=== PATIENT | female | born 1980 | race Caucasian/White ===

== ENCOUNTER 2024-05-07 13:57 | Outpatient (AMB) | payer OTHER, SELFPAY ==
--- NOTE | 2024-05-07 14:06 | MHC.PC.OV ---
Vital Signs 05/07/24 14:16 Height 5 ft 4.76 in Weight 155 lb 8 oz BMI 26.1 BP 108/80 Blood Pressure Location Rt brachial Position Sitting Respiration 12 Pulse 70 Pulse Source Pulse Oximeter Temp 98.7 F Temp Source Oral Pulse Oximetry (%) 99 Oxygen Delivery Method Room Air Intake Visit Reasons: Est CARE Allergies azithromycin Allergy (Unknown, Verified 05/07/24 14:07) Unknown clindamycin Allergy (Unknown, Verified 05/07/24 14:07) Unknown Medication List - Last Reconciled 05/07/24 by Nano Peters PA-C amlodipine 10 mg PO DAILY cetirizine (Zyrtec) 10 mg PO DAILY PRN estradiol 1 patch transdermal 2XW hydrochlorothiazide 25 mg PO DAILY lorazepam 0.5 mg PO BID PRN propranolol 10 mg PO BID rizatriptan take 1 tab at onset of headache; if no relief may repeat 1 tab after at least 2 hrs; max = 3 tabs/24 hr PO Tobacco use date assessed: 05/07/24 Dental Screening Dental Screen Date: 05/07/24 Did you have a dental visit in the last 12 months?: Yes Did you have a dental problem in the last 6 months where you did not have access to dental care?: No Was dental information given to patient?: Patient has dentist HPI Est CARE HPI Details Patient is a 44-year-old female who presents today for a follow up. She has a history of anxiety, depression, hypertension, insomnia and migraines. CV: Blood pressure today in the office is 108/80. She has had a Holter, stress test and echo which were WNL. She is currently on propranolol 10 mg twice a day, hydrochlorothiazide 25 mg and amlodipine 10 mg. She did have a renal artery u/s that was wnl. Psych: Currently on Celexa 40 mg, hydroxyzine as needed amitriptyline 10 mg at bedtime. The amitriptyline also helps her with her headaches. The propranolol treats her anxiety as well. She states that every few months she will experience insomnia that will last almost a week. She states that it will start off gradual were she will have a hard time falling asleep for the 1st few hours and then eventually by the middle of the week she will not be able to sleep until 06:00 and then she will fall asleep for a few hours in the morning. She states that then it will gradually improve back to her baseline. She has spoken with a psychiatrist about this in the past. She does not know if she has any issues with her oxygenation at night. She states that her whole family has sleep apnea. She feels exhausted all day long. Mammogram- UTD fall 2022 [facility] Medical History (Updated 05/07/24 @ 14:56 by Nano Peters PA-C) Herpes zoster Depressive disorder Fibromyalgia Migraine Insomnia Hypercholesteremia Hypertension GERD (gastroesophageal reflux disease) Gall stones Anxiety and depression Surgical History (Updated 12/27/22 @ 09:23 by Ruy Walker LPN) Hx of knee surgery Family History (Updated 12/27/22 @ 09:27 by Ruy Walker LPN) Mother Cardiac arrest Hypercholesteremia Brother Hypertension Sister Diabetes Social History Housing: House Patient Tobacco Use Status: Never used Tobacco e-Cigarette/Vaping Use: Never Used Second Hand Smoke Exposure: No service: No Current occupational status: employed and unemployed 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 1. Little interest or pleasure in doing things: several days 2. Feeling down, depressed, or hopeless: not at all 3. Trouble falling or staying asleep, or sleeping too much: nearly every day 4. Feeling tired or having little energy: several days 5. Poor appetite or overeating: not at all 6. Feeling bad about yourself - or that you are a failure or have let yourself or your family down: not at all 7. Trouble concentrating on things, such as reading the newspaper or watching television: several days 8. Moving or speaking so slowly that other people could have noticed. Or the opposite - being so fidgety or restless that you have been moving around a lot more than usual: not at all 9. Thoughts that you would be better off or of hurting yourself in some way: not at all Total score: 6 Depression Screening Interpretation: Positive Depression Screening Follow-up: Existing condition, In treatment and Change in Medication Depression Screening Done: Yes 00801 - PHQ-9 Billing: Yes Source: Developed by Drs. Wesley Lee, Fanny Roy, Sukhjinder Delarosa and colleagues, with an educational casey from [employer]. Thrive Questionnaire I am a: Patient What is your living situation today?: I have a steady place to live Within the past 12 months, did the food you bought not last and you didn't have the money to get more?: Never true Within the past 12 months, did you worry whether your food would run out before you got money to buy more?: Never true Do you have trouble paying for medicines?: No Do you have trouble getting transportation to medical appointments?: No Do you have trouble paying your heating and electricity bill?: No Do you have trouble taking care of your child, family member or friend?: No Do you have trouble with day-to-day activities such as bathing, preparing meals, shopping, managing finances, etc.?: No Are you currently unemployed and looking for a job?: No Are you interested in more education?: No Please select the resources that you would like help with: None Currently or been in a relationship where the following occur: no concerns reported THRIVE Score: 0 AUDIT C Alcohol Use Questionnaire (AUDIT-C) 1. How often do you have a drink containing alcohol?: 2-3 times a week 2. How many drinks containing alcohol do you have on a typical day when you are drinking?: 1 or 2 3. How often do you have six or more drinks on one occasion?: Never Total Score: 3 BENNY-7 AMB Questionnaire BENNY-7 Feeling nervous, anxious, or on edge: 1 = Several days Not being able to stop or control worryin = Not at all Worrying too much about different things: 1 = Several days Trouble relaxin = Not at all Being so restless that it is hard to sit still: 0 = Not at all Becoming easily annoyed or irritable: 0 = Not at all Feeling afraid as if something awful might happen: 0 = Not at all Total BENNY-7 score (0-4 normal; 5-9 mild; 10-14 moderate; 15-21 severe): 2 Source: Developed by Drs. Wesley Lee, Fanny Roy, Sukhjinder Delarosa and colleagues, with an educational casey from [employer]. BENNY-7 Assessment Billing BENNY-7 Assessment Tool: BENNY-7 Assessment 56418 Physical exam (Primary Care) Vital Signs: Last Vital Signs Temp 98.7 F 05/07/24 14:16 Pulse 70 05/07/24 14:16 Resp 12 05/07/24 14:16 BP 108/80 05/07/24 14:16 Pulse Ox 99 05/07/24 14:16 Oxygen Delivery Method Room Air 05/07/24 14:16 BMI result Body Mass Index 26.1 Tobacco/Smoking Status: Tobacco use Status Tobacco use date assessed 05/07/24 05/07/24 14:18 Patient Tobacco Use Status Never used Tobacco 05/07/24 14:18 e-Cigarette/Vaping Use Never Used 05/07/24 14:18 Depression Screening Interpretation: Positive Depression Screening Follow-up: Existing condition, In treatment and Change in Medication Currently or been in a relationship where the following occur: no concerns reported Const Orientation/consciousness: patient oriented x3 HENMT Ears: hearing grossly normal bilaterally Neck Thyroid: Thyroid normal Lymphatic: no lymphadenopathy noted Resp Auscultation: clear to auscultation bilaterally Cardio Rate: regular rate Rhythm: regular rhythm Heart sounds: S1 normal heart sound present and S2 normal heart sound present GI Inspection: Yes normal to inspection Palpation (GI): Soft to palpation and Other GI palpation findings present (nontender, no cva tenderness) Auscultation: normoactive bowel sounds Rectal Exam - Female: deferred Skin General skin exam: no rashes or lesions noted Neuro General: patient oriented x3, gait normal and no focal motor deficits Assessment and Plan Assessment & Plan (1) Hypertension: Code(s): I10 - Essential (primary) hypertension Qualifiers: Hypertension type: primary hypertension Qualified Code(s): I10 - Essential (primary) hypertension Plan: Continue current regimen (2) Hypercholesteremia: Code(s): E78.00 - Pure hypercholesterolemia, unspecified Plan: Lipids ordered (3) Insomnia: Code(s): G47.00 - Insomnia, unspecified Qualifiers: Insomnia type: unspecified Qualified Code(s): G47.00 - Insomnia, unspecified Plan: Increase amitriptyline. Sleep study ordered. Has a longstanding history of this. (4) Migraine: Code(s): G43.909 - Migraine, unspecified, not intractable, without status migrainosus Qualifiers: Migraine type: unspecified Status migrainosus presence: without status migrainosus Intractability: not intractable Qualified Code(s): G43.909 - Migraine, unspecified, not intractable, without status migrainosus Plan: Overall well-controlled (5) Fatigue: Code(s): R53.83 - Other fatigue Plan: Labs and sleep study ordered. Orders: Orders Lipid Panel Today E78.00 - Pure hypercholesterolemia, unspecified, G43.909 - Migraine, unspecified, not intractable, without status migrainosus, G47.00 - Insomnia, unspecified, I10 - Essential (primary) hypertension TSH reflex Free T4 Today E78.00 - Pure hypercholesterolemia, unspecified, G43.909 - Migraine, unspecified, not intractable, without status migrainosus, G47.00 - Insomnia, unspecified, I10 - Essential (primary) hypertension Ferritin Today E78.00 - Pure hypercholesterolemia, unspecified, G43.909 - Migraine, unspecified, not intractable, without status migrainosus, G47.00 - Insomnia, unspecified, I10 - Essential (primary) hypertension Vitamin B12 and Folate Today E78.00 - Pure hypercholesterolemia, unspecified, G43.909 - Migraine, unspecified, not intractable, without status migrainosus, G47.00 - Insomnia, unspecified, I10 - Essential (primary) hypertension RT home sleep study Today G47.00 - Insomnia, unspecified, I10 - Essential (primary) hypertension, R53.83 - Other fatigue Complete Blood Count Auto Diff Today E78.00 - Pure hypercholesterolemia, unspecified, G43.909 - Migraine, unspecified, not intractable, without status migrainosus, G47.00 - Insomnia, unspecified, I10 - Essential (primary) hypertension Comprehensive [place]. Panel Fast Today E78.00 - Pure hypercholesterolemia, unspecified, G43.909 - Migraine, unspecified, not intractable, without status migrainosus, G47.00 - Insomnia, unspecified, I10 - Essential (primary) hypertension IRON PROFILE Today E78.00 - Pure hypercholesterolemia, unspecified, G43.909 - Migraine, unspecified, not intractable, without status migrainosus, G47.00 - Insomnia, unspecified, I10 - Essential (primary) hypertension Medications: New citalopram 40 mg PO DAILY 90 tabs 3RF rizatriptan take 1 tab at onset of headache; if no relief may repeat 1 tab after at least 2 hrs; max = 3 tabs/24 hr PO 10 tabs 3RF amitriptyline 25 mg PO BEDTIME 90 tabs 3RF Coding Level of Care Code Est Pt Level 4 (71949) Complex EM visit Add On G2211 Diagnoses Primary hypertension I10 Hypertension type: primary hypertension Hypercholesteremia E78.00 Insomnia, unspecified type G47.00 Insomnia type: unspecified Migraine without status migrainosus, not intractable, unspecified migraine type G43.909 Migraine type: unspecified Status migrainosus presence: without status migrainosus Intractability: not intractable Fatigue R53.83 Additional Codes BENNY-7 Assessment Billing - BENNY-7 Assessment Tool: BENNY-7 Assessment 45809 ([id number])
[2024-05-07 14:16] VITALS: BP 108/80; PULSE 70; RESP 12; TEMP 37.1; O2SAT 99; BMI 26.1
== END 2024-05-07 14:54 | disposition home or self-care (01) ==
PROVIDERS: PCP Physician Assistant; Visit Provider Physician Assistant
DX: I10 Essential (primary) hypertension (principal); E78.00 Pure hypercholesterolemia, unspecified; G47.00 Insomnia, unspecified; G43.909 Migraine, unspecified, not intractable, without status migrainosus; R53.83 Other fatigue
CPT/HCPCS: 99214; G2211

== ENCOUNTER 2024-08-13 15:27 | Outpatient (AMB) | payer OTHER, SELFPAY ==
--- NOTE | 2024-08-13 15:36 | A.OFFPC_ITS ---
Vital Signs 08/13/24 15:37 Height 5 ft 4.76 in Weight 150 lb 4 oz BMI 25.2 BP 102/70 Blood Pressure Location Rt brachial Position Sitting Pulse 82 Pulse Source Pulse Oximeter Pulse Oximetry (%) 97 Oxygen Delivery Method Room Air Intake Visit Reasons: Physical Intake Note: Physical. Forgot to get fasting labs done. 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: No Allergies azithromycin Allergy (Unknown, Verified 08/13/24 15:36) Unknown clindamycin Allergy (Unknown, Verified 08/13/24 15:36) Unknown Medication List - Last Reconciled 08/13/24 by Nano Peters PA-C amitriptyline 25 mg PO BEDTIME amlodipine 10 mg PO DAILY cetirizine (Zyrtec) 10 mg PO DAILY PRN citalopram 40 mg PO DAILY estradiol 1 patch transdermal 2XW hydrochlorothiazide 25 mg PO DAILY lorazepam 0.5 mg PO BID PRN propranolol 10 mg PO BID rizatriptan take 1 tab at onset of headache; if no relief may repeat 1 tab after at least 2 hrs; max = 3 tabs/24 hr PO Tobacco use date assessed: 05/07/24 Dental Screening Dental Screen Date: 05/07/24 HPI Physical HPI Details Pt is 44 y/o female who presents today for a cpe. CV: bp today is 102/70. She is on norvasc 10 mg and hctz 25 mg. Neuro: Migraines are improved with amitriptyline. General: still feeling tired and having a hard time falling asleep and staying asleep. She states sometimes she won't fall asleep until the next day. She states it does not matter how much sleep she gets she is tired all of the time. She takes naps daily to function. She does not limit caffeine but does not notice a difference to drinking it. She does not know if she snores. 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 She states that she would like BRCA testing because her mother will not get tested and her maternal aunt and maternal grandmother both had breast cancer. Mammo: UTD, goes to [facility] for this. [facility] Medical History (Updated 08/13/24 @ 16:01 by Nano Peters PA-C) Herpes zoster Depressive disorder Fibromyalgia Migraine Insomnia Hypercholesteremia Hypertension GERD (gastroesophageal reflux disease) Gall stones Anxiety and depression Surgical History (Updated 12/27/22 @ 09:23 by Ruy Walker LPN) Hx of knee surgery Family History (Updated 12/27/22 @ 09:27 by Ruy Walker LPN) Mother Cardiac arrest Hypercholesteremia Brother Hypertension Sister Diabetes Social History Housing: House Patient Tobacco Use Status: Never used Tobacco e-Cigarette/Vaping Use: Never Used Second Hand Smoke Exposure: No service: No Current occupational status: employed and unemployed 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 1. Little interest or pleasure in doing things: not at all 2. Feeling down, depressed, or hopeless: not at all 3. Trouble falling or staying asleep, or sleeping too much: several days 4. Feeling tired or having little energy: several days 5. Poor appetite or overeating: not at all 6. Feeling bad about yourself - or that you are a failure or have let yourself or your family down: not at all 7. Trouble concentrating on things, such as reading the newspaper or watching television: not at all 8. Moving or speaking so slowly that other people could have noticed. Or the opposite - being so fidgety or restless that you have been moving around a lot more than usual: not at all 9. Thoughts that you would be better off or of hurting yourself in some way: not at all Total score: 2 Depression Screening Interpretation: Positive Depression Screening Done: Yes 53046 - PHQ-9 Billing: Yes Source: Developed by Drs. Wesley Lee, Fanny Roy, Sukhjinder Delarosa and colleagues, with an educational casey from [employer]. Thrive Questionnaire Date Thrive assessed: 08/13/24 I am a: Patient What is your living situation today?: I have a steady place to live Within the past 12 months, did the food you bought not last and you didn't have the money to get more?: Never true Within the past 12 months, did you worry whether your food would run out before you got money to buy more?: Never true Do you have trouble paying for medicines?: No Do you have trouble getting transportation to medical appointments?: No Do you have trouble paying your heating and electricity bill?: No Do you have trouble taking care of your child, family member or friend?: No Do you have trouble with day-to-day activities such as bathing, preparing meals, shopping, managing finances, etc.?: No Are you currently unemployed and looking for a job?: No Are you interested in more education?: No Please select the resources that you would like help with: None Currently or been in a relationship where the following occur: No concerns reported THRIVE Score: 0 AUDIT C Alcohol Use Questionnaire (AUDIT-C) 1. How often do you have a drink containing alcohol?: 2-3 times a week 2. How many drinks containing alcohol do you have on a typical day when you are drinking?: 1 or 2 3. How often do you have six or more drinks on one occasion?: Never Total Score: 3 BENNY-7 AMB Questionnaire BENNY-7 Date BENNY - 7 assessed: 08/13/24 Feeling nervous, anxious, or on edge: 1 = Several days Not being able to stop or control worryin = Not at all Worrying too much about different things: 1 = Several days Trouble relaxin = Not at all Being so restless that it is hard to sit still: 0 = Not at all Becoming easily annoyed or irritable: 0 = Not at all Feeling afraid as if something awful might happen: 0 = Not at all Total BENNY-7 score (0-4 normal; 5-9 mild; 10-14 moderate; 15-21 severe): 2 Source: Developed by Drs. Wesley Lee, Fanny Roy, Sukhjinder Delarosa and colleagues, with an educational casey from [employer]. BENNY-7 Assessment Billing BENNY-7 Assessment Tool: BENNY-7 Assessment 75055 Physical exam (Primary Care) Vital Signs: Last Vital Signs Pulse 82 08/13/24 15:37 BP 102/70 08/13/24 15:37 Pulse Ox 97 08/13/24 15:37 Oxygen Delivery Method Room Air 08/13/24 15:37 BMI result Body Mass Index 25.2 Tobacco/Smoking Status: Tobacco use Status Tobacco use date assessed 05/07/24 08/13/24 15:42 Patient Tobacco Use Status Never used Tobacco 08/13/24 15:42 e-Cigarette/Vaping Use Never Used 08/13/24 15:42 PHQ-9: PHQ-9 Score PHQ-9: Total score 2 08/13/24 15:51 Depression Screening Interpretation: Positive Thrive Assessment: Date of Thrive Assessment Date Thrive assessed 08/13/24 08/13/24 15:42 Currently or been in a relationship where the following occur: No concerns reported Const Orientation/consciousness: patient oriented x3 HENMT Ears: hearing grossly normal bilaterally and TM's normal bilaterally General nose exam: No nasal polyps present Face and sinus: Yes sinuses nontender Mouth: Normal oral and palatal mucosa present Eyes Pupils: Equal, round and reactive pupils present EOM: EOMs intact bilaterally Neck Neck: Yes full ROM and Yes no lymphadenopathy Thyroid: Thyroid normal Chest Chest palpation & inspection: normal inspection of the chest Resp Auscultation: clear to auscultation bilaterally Cardio Rate: regular rate Rhythm: regular rhythm Heart sounds: S1 normal heart sound present and S2 normal heart sound present Peripheral pulses: Peripheral pulses 2+ throughout GI Other: Soft, nontender Auscultation: normal bowel sounds Rectal Exam - Female: deferred General: Yes no CVA tenderness Back/Spine/Pelvis Other: Nontender Back: no CVA tenderness Skin General skin exam: no rashes or lesions noted Neuro General: patient oriented x3, gait normal, CN's II-XI intact bilaterally and deep tendon reflexes 2+ bilaterally Cranial nerves: Yes Equal, round and reactive pupils present Motor exam (neuro): 5/5 motor strength present throughout Sensory Exam: double simultaneous stimulation for sensation normal Coordination: [id number] test normal and Romberg test negative Extrem General: Yes normal to inspection and Yes full ROM Psych Affect: normal affect Attitude: cooperative Thought process: Normal thought process present Thought content: Normal thought content present Insight: Good insight present (Psych) Judgement: Good judgement present (Psych) Assessment and Plan Assessment & Plan (1) Routine general medical examination at a health care facility: Code(s): Z00.00 - Encounter for general adult medical examination without abnormal findings Plan: Advised to complete labs. Health maintenance reviewed. Referral to Genetics. Follow up in 6 months. Sooner if needed. (2) Hypertension: Code(s): I10 - Essential (primary) hypertension Qualifiers: Hypertension type: primary hypertension Qualified Code(s): I10 - Essential (primary) hypertension Plan: WNL. Continue current regimen. (3) Insomnia: Code(s): G47.00 - Insomnia, unspecified Qualifiers: Insomnia type: unspecified Qualified Code(s): G47.00 - Insomnia, unspecified Plan: Referral for sleep study (4) Migraine: Code(s): G43.909 - Migraine, unspecified, not intractable, without status migrainosus Qualifiers: Migraine type: unspecified Status migrainosus presence: without status migrainosus Intractability: not intractable Qualified Code(s): G43.909 - Migraine, unspecified, not intractable, without status migrainosus Plan: Currently well-controlled (5) Fatigue: Code(s): R53.83 - Other fatigue Plan: As above (6) Family history of breast cancer: Code(s): Z80.3 - Family history of malignant neoplasm of breast Plan: Referral to Genetics. Phone number provided. Orders: Orders RT PSG in-lab sleep study Today G43.909 - Migraine, unspecified, not intractable, without status migrainosus, G47.00 - Insomnia, unspecified, I10 - Essential (primary) hypertension, R53.83 - Other fatigue Referrals Genetics Referral Z80.3 - Family history of malignant neoplasm of breast Coding Level of Care Code Est Pt Prev Care 40-64y(66147) Diagnoses Routine general medical examination at a health care facility Z00.00 Primary hypertension I10 Hypertension type: primary hypertension Insomnia, unspecified type G47.00 Insomnia type: unspecified Migraine without status migrainosus, not intractable, unspecified migraine type G43.909 Migraine type: unspecified Status migrainosus presence: without status migrainosus Intractability: not intractable Fatigue R53.83 Family history of breast cancer Z80.3 Additional Codes BENNY-7 Assessment Billing - BENNY-7 Assessment Tool: BENNY-7 Assessment 85022 ([id number])
[2024-08-13 15:37] VITALS: BP 102/70; PULSE 82; O2SAT 97; BMI 25.2
== END 2024-08-13 17:16 | disposition home or self-care (01) ==
PROVIDERS: PCP Physician Assistant; Visit Provider Physician Assistant
DX: Z00.00 Encounter for general adult medical examination without abnormal findings (principal); I10 Essential (primary) hypertension; G47.00 Insomnia, unspecified; G43.909 Migraine, unspecified, not intractable, without status migrainosus; R53.83 Other fatigue; Z80.3 Family history of malignant neoplasm of breast

== ENCOUNTER → 2024-08-13 15:27 | Outpatient (BNVA) | payer OTHER, SELFPAY | PROVIDERS: PCP Physician Assistant; Visit Provider Physician Assistant | DX: Z00.01 Encounter for general adult medical examination with abnormal findings (principal); G43.909 Migraine, unspecified, not intractable, without status migrainosus; I10 Essential (primary) hypertension; G47.00 Insomnia, unspecified; R53.83 Other fatigue; Z80.3 Family history of malignant neoplasm of breast | CPT/HCPCS: 96127; 99396 ==

== ENCOUNTER 2024-08-25 09:48 | Outpatient (REF) | payer OTHER, SELFPAY ==
[2024-08-25 11:11] LABS: MANUAL DIFF FLAG NO
[2024-08-25 11:31] LABS: Basophils Absolute Auto 0.1 X10*3/uL (0.0-0.2); Eosinophils Absolute Auto 0.1 X10*3/uL (0.0-0.4); Eosinophils Percent Auto 1.1 % (0-4); Hematocrit 42.2 % (37.0-47.0); Hemoglobin 14.7 g/dl (12.0-16.0); Imm Gran Abs Auto 0.04 X10*3/uL (0.00-0.03); Imm Gran Pct Auto 0.6 % (0.0-0.4); Lymphocytes Absolute Auto 2.6 X10*3/uL (1.2-4.9); Lymphocytes Percent Auto 36.1 % (20-40); Mean Corpuscular HGB Conc 34.8 g/dl (31.0-35.0); Mean Corpuscular Hemoglobin 31.8 pg (27.0-33.0); Mean Corpuscular Volume 91.3 fL (80.0-98.0); Mean Platelet Volume 10.4 fL (9.4-12.3); Monocytes Absolute Auto 0.5 X10*3/uL (0.1-1.2); Monocytes Percent Auto 6.3 % (2-11); Neutrophils Absolute Auto 3.9 x10*3/uL (2.0-8.3); Neutrophils Percent Auto 54.9 % (45-73); Platelet Count 224 X10*3/uL (160-400); Red Blood Count 4.62 X10*6/uL (4.20-5.50); Red Cell Distribution Width 11.6 % (11.0-16.0); White Blood Count 7.1 X10*3/uL (4.8-10.8)
[2024-08-25 12:10] LABS: Alanine Aminotransferase 16 U/L (0-31); Albumin Level 4.5 g/dL (3.5-5.0); Alkaline Phosphatase 51 U/L (39-117); Anion Gap 11 (12-20); Aspartate Amino Transferase 18 U/L (5-31); Bilirubin Total 0.6 mg/dL (0.0-1.0); Blood Urea Nitrogen 20 mg/dL (9-16); Calcium 9.5 mg/dL (8.4-10.2); Carbon Dioxide 28 mmol/L (22-29); Chloride 103 mmol/L (96-108); Cholesterol 206 mg/dL (<200); Estimated Glomerular Filt Rate > 60; Ferritin 113 ng/mL (10-250); Glucose Fasting 90 mg/dL (60-99); HDL Cholesterol 58 mg/dL (>40); Iron 94 mcg/dL (30-160); LDL Cholesterol Calculated 128 mg/dL (<100); Percent Iron Saturation 36 % (15-50); Potassium 3.6 mmol/L (3.3-5.1); Sodium 138 mmol/L (135-145); TSH reflex Free T4 0.94 uIU/mL (0.32-4.0); Total Iron Binding Capacity 261 mcg/dL (228-428); Total Protein 7.6 g/dL (6.5-8.0); Triglycerides 100 mg/dL (<150); Unsaturated Iron Binding 167 ug/dL
[2024-08-25 12:33] LABS: Folate 12.6 ng/mL (> or = 4.0); Vitamin B12 712 pg/mL (200-900)
== END 2024-08-25 09:49 | disposition home or self-care (01) ==
LOC: HO.WFDLDS 09:48
PROVIDERS: Visit Provider Physician Assistant
DX: I10 Essential (primary) hypertension (principal); G43.909 Migraine, unspecified, not intractable, without status migrainosus; G47.00 Insomnia, unspecified; E78.00 Pure hypercholesterolemia, unspecified
CPT/HCPCS: 36415; 80053; 80061; 82607; 82728; 82746; 83540; 84443; 85025

== ENCOUNTER → 2024-09-17 00:54 | Outpatient (BNV) | payer OTHER, SELFPAY | PROVIDERS: PCP Physician Assistant; Visit Provider Internal Medicine | DX: I10 Essential (primary) hypertension (principal); R53.83 Other fatigue; G47.00 Insomnia, unspecified; G43.909 Migraine, unspecified, not intractable, without status migrainosus | CPT/HCPCS: 95810 ==

== ENCOUNTER → 2024-09-17 20:30 | Outpatient (REF) | payer OTHER, SELFPAY | LOC: HO.SL 20:30 | PROVIDERS: PCP Physician Assistant; Visit Provider Physician Assistant | DX: I10 Essential (primary) hypertension (principal); R53.83 Other fatigue; G47.00 Insomnia, unspecified; G43.909 Migraine, unspecified, not intractable, without status migrainosus | CPT/HCPCS: 95810 ==

== ENCOUNTER 2024-10-06 14:38 | Outpatient (AMB) | payer OTHER, SELFPAY ==
[2024-10-06 14:52] VITALS: BP 112/82; BMI 25.7
--- NOTE | 2024-10-06 14:52 | A.OFFVIS_ITS ---
Vital Signs 10/06/24 14:52 Height 5 ft 4 in Weight 150 lb BMI 25.7 BP 112/82 Blood Pressure Location Rt brachial Position Sitting Intake Visit Reasons: INP-DANELLE Intake Note: Patient presents for DANELLE Allergies azithromycin Allergy (Unknown, Verified 10/06/24 14:55) Unknown clindamycin Allergy (Unknown, Verified 10/06/24 14:55) Unknown Medication List - Last Reconciled 10/06/24 by Yolande Ngo PA-C amitriptyline 25 mg PO BEDTIME amlodipine 10 mg PO DAILY cetirizine (Zyrtec) 10 mg PO DAILY PRN citalopram 40 mg PO DAILY estradiol 1 patch transdermal 2XW hydrochlorothiazide 25 mg PO DAILY lorazepam 0.5 mg PO BID PRN propranolol 10 mg PO BID rizatriptan take 1 tab at onset of headache; if no relief may repeat 1 tab after at least 2 hrs; max = 3 tabs/24 hr PO HPI Comments Details: 44 year old female with h/o migraines and anxiety is here for follow up of her polysomnography results. She has a family history of sleep apnea. Her AHI is 45.8 Periodic Limb movements index 32 and arousal index 6/hour. Nocturnal hypoxemia with O2 sat 0f 81% for 18 min. 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 She reports SOB, gasping for air, talking in sleep, partner reports snoring. She reports headaches, and migraines, managed with Rizatriptan and Amitryptiline. [facility] Medical History (Updated 10/07/24 @ 15:15 by Altagracia Haq MD) Obstructive sleep apnea hypopnea, severe Herpes zoster Depressive disorder Fibromyalgia Migraine Insomnia Hypercholesteremia Hypertension GERD (gastroesophageal reflux disease) Gall stones Anxiety and depression Surgical History Hx laparoscopic cholecystectomy Hx of knee surgery Family History Mother Cardiac arrest Hypercholesteremia Brother Hypertension Sister Diabetes Social History Housing: House Patient Tobacco Use Status: Never used Tobacco e-Cigarette/Vaping Use: Never Used Second Hand Smoke Exposure: No service: No Current occupational status: employed and unemployed 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 Cognitive needs: No Hearing needs: No Vision needs: Yes (contact, glasses) Physical Exam Vital Signs: Last Vital Signs BP 112/82 10/06/24 14:52 BMI result Body Mass Index 25.7 Const General: cooperative, comfortable and no acute distress Orientation/consciousness: patient oriented x3 HEENT Mouth: tongue normal Eyes General: appearance normal, both eyes and all related structures Pupils: Equal, round and reactive pupils present, Pupils normal by confrontation and Pupil accommodation reflex normal Neck Neck: Yes full ROM and Yes supple Resp Effort & Inspection: normal respiratory effort and able to speak in complete sentences Neuro General: patient oriented x3, moves all extremities, Normal light touch and pain sensation and CN's II-XI intact bilaterally Cranial nerves: Yes CN's II-XII intact bilaterally, Yes Facial sensation intact/muscles of mastication intact, Yes Equal, round and reactive pupils present, Yes Nystagmus not present, Yes Normal facial strength present, Yes Midline tongue present, Yes Symmetric palate elevation present, Yes Ability to bilaterally rotate head present and Yes Ability to bilaterally elevate shoulders present Motor exam (neuro): 5/5 motor strength present throughout Deep tendon reflexes (DTR's): Right triceps reflex intensity grade: 2+, Left triceps reflex intensity grade: 2+, Rt Biceps (C5, C6): 2+, Left biceps reflex intensity grade: 2+, Right brachioradialis reflex intensity grade: 2+, Left brachioradialis reflex intensity grade: 2+, Right patellar reflex intensity grade: 2+, Left patellar reflex intensity grade: 2+, Right ankle reflex intensity grade: 2+ and Left ankle reflex intensity grade: 2+ Coordination: [id number] test normal Psych Appearance: grossly normal Speech and movement: Normal speech and movement present Affect: normal affect Attitude: cooperative Insight: Good insight present (Psych) Assessment & Plan Assessment & Plan (1) Obstructive sleep apnea hypopnea, severe: Comment: AHI 46 O2 pat was 81% PSG- 08/2024 Code(s): G47.33 - Obstructive sleep apnea (adult) (pediatric) Category: Medical Plan Will follow up with in lab CPAP-titration study to determine best therapy pressures. Compliance of 4 hours or more per night is stressed, using it nightly will provide good clinical effects, decrease arousals and restful sleep. Coding Level of Care Code Est Pt Level 4 (22038) Diagnoses Obstructive sleep apnea hypopnea, severe G47.33
== END 2024-10-06 15:33 | disposition home or self-care (01) ==
PROVIDERS: PCP Physician Assistant; Visit Provider Physician Assistant Medical
DX: G47.33 Obstructive sleep apnea (adult) (pediatric) (principal)
CPT/HCPCS: 99213

== ENCOUNTER → 2024-10-06 14:38 | Outpatient (BNVA) | payer OTHER, SELFPAY | PROVIDERS: PCP Physician Assistant; Visit Provider Psychiatry & Neurology Neurology | DX: G47.33 Obstructive sleep apnea (adult) (pediatric) (principal); R09.02 Hypoxemia | CPT/HCPCS: 99212 ==

== ENCOUNTER 2024-12-31 09:44 | Outpatient (AMB) | payer OTHER, SELFPAY ==
--- NOTE | 2024-12-31 09:50 | A.OFFPC_ITS ---
Vital Signs 12/31/24 09:58 Height 5 ft 4 in Weight 151 lb BMI 25.9 BP 108/82 Blood Pressure Location Rt brachial Position Sitting Respiration 12 Pulse 92 Pulse Source Pulse Oximeter Pulse Oximetry (%) 99 Oxygen Delivery Method Room Air Intake Visit Reasons: discuss blood pressure meds Intake Note: Wants to discuss decreasing blood pressure medication. Is being treated for sleep apnea and believes it is improving blood pressure. Allergies azithromycin Allergy (Unknown, Verified 12/31/24 09:51) Unknown clindamycin Allergy (Unknown, Verified 12/31/24 09:51) Unknown Medication List - Last Reconciled 12/31/24 by Nano Peters PA-C amitriptyline 25 mg PO BEDTIME amlodipine 10 mg PO DAILY citalopram 40 mg PO DAILY estradiol 1 patch transdermal 2XW lorazepam 0.5 mg PO BID PRN rizatriptan take 1 tab at onset of headache; if no relief may repeat 1 tab after at least 2 hrs; max = 3 tabs/24 hr PO Tobacco use date assessed: 05/07/24 Dental Screening Dental Screen Date: 05/07/24 HPI discuss blood pressure meds HPI Details History of Present Illness The patient is a 44-year-old female with a hx of ocd, anxiety, severe bernie, htn presenting today for a follow up. Psych: She does present with anxiety and obsessive-compulsive symptoms. She reports a history of anxiety and obsessive-compulsive disorder, characterized by cheek biting and finger peeling, which she has been unable to control. The patient has noted an exacerbation of these symptoms associated with the onset of menopause. She admits to feeling anxious despite the use of an estrogen patch to manage menopausal symptoms. The patient is currently maintained on Celexa 40 mg for her mental health symptoms and amitriptyline 25 mg for its sedative effects. She is not currently utilizing lorazepam, which was prescribed as needed for acute anxiety episodes. CV: Her medical history includes a diagnosis of essential hypertension and obstructive sleep apnea. The patient has been using a CPAP machine and reports improved sleep quality as a result. She mentions that her blood pressure readings have occasionally been low, prompting a reevaluation of her hypertension management. She is currently on norvasc 10 mg and hctz 25 mg daily. She has recently dc'd the propranolol 10 mg bid due to improved hr with better sleeping. She would like to come off of a med or reduce one. Health Maintenance - Genetic testing completed with no gene tic anomalies detected. - Patient reports undergoing screening f or breast health due to increased risk. - Facilitated referral for specialist co nsultation regarding psychiatric management of OCD and anxiety. - Discussion on discontinuation of hydro chlorothiazide for hypertension management to monitor impact on blood pressure. - Encouragement of good lifestyle choice s and adherence to CPAP therapy for sleep apnea management. Social History - Patient is not actively working or yong dying; educational status is not discussed. - No significant details provided regard ing housing or family status. - Functional status is affected by anxie ty and compulsive behaviors, specifically skin picking. - Limited information about current nutr itional intake; weight management not discussed. Review of Systems - Psychiatric: Reports anxiety, compulsi ve behaviors, and difficulty controlling obsessive thoughts. - Cardiovascular: No reports of palpitat ions; stopped propranolol due to perceived lack of need. - Sleep: Improved quality of sleep with CPAP use. - Skin: Reports uncontrolled picking niko ding to lesions and bleeding. Physical Exam General: Well developed, well nourished, in no acute distress. Appears stated age. Cardiac: RRR, no murmurs Lungs: clear, equal breath sounds Abdomen: soft, nontender, no CVA tenderness Extremities: no edema Neuro: alert, oriented x3, mood appropriate Plan - To monitor blood pressure control with ongoing antihypertensive regimen of amlodipine alone, discontinuing hydrochlorothiazide to assess its impact on blood pressure regulation. She will monitor this at home. - Advise patient to trial lorazepam for management of acute anxiety episodes, mo nitoring for effectiveness and potential dependency. - Referral to outpatient psychiatric ser vices to evaluate and manage obsessive- compulsive disorder and anxiety through possible medication adjustments or alternative therapy. - Continue use of estrogen patch for men opausal symptoms and encourage CPAP compliance for sleep apnea. - Schedule follow-up in one month to shelton ssess anxiety symptoms, blood pressure status, and medication tolerance. - Encourage regular blood work monitorin g to ensure metabolic and electrolyte balance, with instructions for fasting lab tests prior to the next visit. [facility] Medical History (Updated 12/31/24 @ 10:18 by Nano Peters PA-C) Obstructive sleep apnea hypopnea, severe Herpes zoster Depressive disorder Fibromyalgia Migraine Insomnia Hypercholesteremia Hypertension GERD (gastroesophageal reflux disease) Gall stones Anxiety and depression Surgical History Hx laparoscopic cholecystectomy Hx of knee surgery Family History Mother Cardiac arrest Hypercholesteremia Brother Hypertension Sister Diabetes Social History Housing: House Patient Tobacco Use Status: Never used Tobacco e-Cigarette/Vaping Use: Never Used Second Hand Smoke Exposure: No service: No Current occupational status: employed and unemployed 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 1. Little interest or pleasure in doing things: several days 2. Feeling down, depressed, or hopeless: several days 3. Trouble falling or staying asleep, or sleeping too much: not at all 4. Feeling tired or having little energy: several days 5. Poor appetite or overeating: not at all 6. Feeling bad about yourself - or that you are a failure or have let yourself or your family down: not at all 7. Trouble concentrating on things, such as reading the newspaper or watching television: several days 8. Moving or speaking so slowly that other people could have noticed. Or the opposite - being so fidgety or restless that you have been moving around a lot more than usual: not at all 9. Thoughts that you would be better off or of hurting yourself in some way: not at all Total score: 4 Depression Screening Interpretation: Positive Depression Screening Follow-up: Existing condition, In treatment and Community Mental Health Worker F/U Depression Screening Done: Yes 07727 - PHQ-9 Billing: Yes Source: Developed by Drs. Wesley Lee, Fanny Roy, Sukhjinder Delarosa and colleagues, with an educational casey from [employer]. Thrive Questionnaire Date Thrive assessed: 12/31/24 I am a: Patient What is your living situation today?: I have a steady place to live Within the past 12 months, did the food you bought not last and you didn't have the money to get more?: Never true Within the past 12 months, did you worry whether your food would run out before you got money to buy more?: Never true Do you have trouble paying for medicines?: No Do you have trouble getting transportation to medical appointments?: No Do you have trouble paying your heating and electricity bill?: No Do you have trouble taking care of your child, family member or friend?: No Do you have trouble with day-to-day activities such as bathing, preparing meals, shopping, managing finances, etc.?: No Are you currently unemployed and looking for a job?: No Are you interested in more education?: No Please select the resources that you would like help with: None Currently or been in a relationship where the following occur: No concerns reported THRIVE Score: 0 AUDIT C Alcohol Use Questionnaire (AUDIT-C) 1. How often do you have a drink containing alcohol?: 2-3 times a week 2. How many drinks containing alcohol do you have on a typical day when you are drinking?: 1 or 2 3. How often do you have six or more drinks on one occasion?: Never Total Score: 3 BENNY-7 AMB Questionnaire BENNY-7 Date BENNY - 7 assessed: 12/31/24 Feeling nervous, anxious, or on edge: 1 = Several days Not being able to stop or control worryin = Several days Worrying too much about different things: 1 = Several days Trouble relaxin = Not at all Being so restless that it is hard to sit still: 0 = Not at all Becoming easily annoyed or irritable: 0 = Not at all Feeling afraid as if something awful might happen: 0 = Not at all Total BENNY-7 score (0-4 normal; 5-9 mild; 10-14 moderate; 15-21 severe): 3 Source: Developed by Drs. Wesley Lee, Fanny Roy, Sukhjinder Delarosa and colleagues, with an educational casey from [employer]. BENNY-7 Assessment Billing BENNY-7 Assessment Tool: BENNY-7 Assessment 44172 Physical exam (Primary Care) Vital Signs: Last Vital Signs Pulse 92 12/31/24 09:58 Resp 12 12/31/24 09:58 BP 108/82 12/31/24 09:58 Pulse Ox 99 12/31/24 09:58 Oxygen Delivery Method Room Air 12/31/24 09:58 BMI result Body Mass Index 25.9 Tobacco/Smoking Status: Tobacco use Status Tobacco use date assessed 05/07/24 12/31/24 09:56 Patient Tobacco Use Status Never used Tobacco 12/31/24 09:56 e-Cigarette/Vaping Use Never Used 12/31/24 09:56 PHQ-9: PHQ-9 Score PHQ-9: Total score 4 12/31/24 11:42 Depression Screening Interpretation: Positive Depression Screening Follow-up: Existing condition, In treatment and Community Mental Health Worker F/U Thrive Assessment: Date of Thrive Assessment Date Thrive assessed 12/31/24 12/31/24 10:00 Currently or been in a relationship where the following occur: No concerns reported Coding Level of Care Code Est Pt Level 4 (13128) Complex EM visit Add On G2211 Diagnoses Generalized anxiety disorder with panic attacks F41.1; F41.0 History of OCD (obsessive compulsive disorder) Z86.59 Primary hypertension I10 Hypertension type: primary hypertension Hypercholesteremia E78.00 Additional Codes BENNY-7 Assessment Billing - BENNY-7 Assessment Tool: BENNY-7 Assessment 97208 ([id number]) PHQ-9 - 61197 - PHQ-9 Billing: Yes ([id number]) Assessment & Plan Assessment & Plan (1) Generalized anxiety disorder with panic attacks: Code(s): F41.1 - Generalized anxiety disorder; F41.0 - Panic disorder [episodic paroxysmal anxiety] Category: Medical (2) History of OCD (obsessive compulsive disorder): Code(s): Z86.59 - Personal history of other mental and behavioral disorders Category: Medical (3) Hypertension: Code(s): I10 - Essential (primary) hypertension Category: Medical Qualifiers: Hypertension type: primary hypertension Qualified Code(s): I10 - Essen tial (primary) hypertension (4) Hypercholesteremia: Code(s): E78.00 - Pure hypercholesterolemia, unspecified Category: Medical Plan . Orders: Orders Comprehensive [place]. Panel Fast Today E78.00 - Pure hypercholesterolemia, unspecified, F41.0 - Panic disorder [episodic paroxysmal anxiety], F41.1 - Generalized anxiety disorder, I10 - Essential (primary) hypertension Complete Blood Count Auto Diff Today E78.00 - Pure hypercholesterolemia, unspecified, F41.0 - Panic disorder [episodic paroxysmal anxiety], F41.1 - Generalized anxiety disorder, I10 - Essential (primary) hypertension TSH reflex Free T4 Today E78.00 - Pure hypercholesterolemia, unspecified, F41.0 - Panic disorder [episodic paroxysmal anxiety], F41.1 - Generalized anxiety disorder, I10 - Essential (primary) hypertension Vitamin B12 and Folate Today E78.00 - Pure hypercholesterolemia, unspecified, F41.0 - Panic disorder [episodic paroxysmal anxiety], F41.1 - Generalized anxiety disorder, I10 - Essential (primary) hypertension Magnesium Today E78.00 - Pure hypercholesterolemia, unspecified, F41.0 - Panic disorder [episodic paroxysmal anxiety], F41.1 - Generalized anxiety disorder, I10 - Essential (primary) hypertension Referrals Behavioral Health Referral F41.0 - Panic disorder [episodic paroxysmal anxiety], F41.1 - Generalized anxiety disorder, Z86.59 - Personal history of other mental and behavioral disorders
[2024-12-31 09:58] VITALS: BP 108/82; PULSE 92; RESP 12; O2SAT 99; BMI 25.9
--- OUTSIDE RECORDS SUMMARY | 2024-12-31 11:06 | XMS_ITS | Clinical Summary ---
Author Organization [facility] Address [address] [place] [address] Care Team Providers Care Perinatal Director Name Role Phone Tarah Brock MD Primary Care Provider + Surgical History Surgery Date Site/Laterality Comments OTHER SURGICAL HISTORY PROCEDURE: ARTHROSCOPY PROCEDURE NEC; COMMENT: knee debreedment WISDOM TOOTH EXTRACTION PROCEDURE: HISTORICAL WISDOM TEETH EXTRACTION KNEE ARTHROSCOPY PROCEDURE: [place] ARTHROSCOPY AID [place] SPINE&/FX KNEE W/O FIXJ Medical History Medical History Date Comments Gallstones DX:Gallstones Migraines DX:Migraines Fibromyalgia DX:Fibromyalgia Gastropathy 03/06/2019 DX:Gastropathy; COMMENT: Reactive gastropathy Family History Medical History Relation Name Comments Other: cancer breast Aunt materna l; aunt in 40's Multiple sclerosis Mother Other: heart disease Mother Hypertension Other Stroke Sister Relation Name Status Comments Aunt Father Alive Mother Alive Other Sister Social History Tobacco Use Types Packs/Day Years Used Date Smoking Tobacco: Never Smokeless Tobacco: Never Alcohol Use Standard Drinks/Week Comments Yes 0 (1 standard drink = 0.6 oz pur e alcohol) Comments Unknown Sex and Gender Information Value Date Recorded Sex Assigned at Not on file Legal Sex Female 5:34 PM EST Gender Identity Not on file Sexual Orientation Not on file Obstetrics History Plan of Treatment Health Maintenance Due Date Last Done Comments Breast Cancer Screening 1981 DTaP,Tdap,and Td Vaccines (1 - Tdap) 01/19/2000 Hepatitis B Vaccines (1 of 3 - 19+ 3-dose series) 01/19/2000 Cervical Cancer Screening: P ap Smear 2002 Depression Screening 10/21/2022 HIV Screening 10/21/2022 Hepatitis C Screening 10/21/2022 Social Influencers of Health Screening 10/21/2022 COVID-19 Vaccine ( - 2023-2 5 season) 2024 Influenza Vaccine (#1) 2024 HIB Vaccines Aged Out No longer eligi ble based on patient's age to complete this topic HPV Vaccines Aged Out No longer eligi ble based on patient's age to complete this topic Hepatitis A Vaccines Aged Out No long er eligible based on patient's age to complete this topic IPV Vaccines Aged Out No longer eligi ble based on patient's age to complete this topic MMR Vaccines Aged Out No longer eligi ble based on patient's age to complete this topic Meningococcal ACWY Vaccine Aged Out N o longer eligible based on patient's age to complete this topic Meningococcal B Vacine Aged Out No lo nger eligible based on patient's age to complete this topic Pneumococcal Vaccine: Pediat rics (0 to 5 Years) and At-Risk Patients (6 to 64 Years) Aged Out No longer eligible b ased on patient's age to complete this topic RSV Immunization Patients Un delmy 20 months Aged Out No longer eligible b ased on patient's age to complete this topic Varicella Vaccines Aged Out No longer eligible based on patient's age to complete this topic Care Teams Perinatal Director Relationship Specialty Start Date End Date Tarah Brock MD [address] [place] [address] PCP - General Internal Medicine 12/31/18
== END 2024-12-31 10:30 | disposition home or self-care (01) ==
PROVIDERS: PCP Physician Assistant; Visit Provider Physician Assistant
DX: F41.1 Generalized anxiety disorder (principal); F41.0 Panic disorder [episodic paroxysmal anxiety]; Z86.59 Personal history of other mental and behavioral disorders; I10 Essential (primary) hypertension; E78.00 Pure hypercholesterolemia, unspecified

== ENCOUNTER → 2024-12-31 09:44 | Outpatient (BNVA) | payer OTHER, SELFPAY | PROVIDERS: PCP Physician Assistant; Visit Provider Physician Assistant | DX: F41.1 Generalized anxiety disorder (principal); F41.0 Panic disorder [episodic paroxysmal anxiety]; I10 Essential (primary) hypertension; E78.00 Pure hypercholesterolemia, unspecified; Z86.59 Personal history of other mental and behavioral disorders | CPT/HCPCS: 96127; 99212 ==

== ENCOUNTER → 2025-03-05 19:30 | Outpatient (BNV) | payer OTHER, SELFPAY | PROVIDERS: PCP Physician Assistant; Visit Provider Psychiatry & Neurology Neurology | DX: G47.33 Obstructive sleep apnea (adult) (pediatric) (principal) | CPT/HCPCS: 95811 ==

== ENCOUNTER → 2025-03-05 19:30 | Outpatient (REF) | payer OTHER, SELFPAY ==
--- OUTSIDE RECORDS SUMMARY | 2025-03-05 21:38 | XMS_ITS | Clinical Summary ---
Author Organization [facility] Address [address] [place] [address] Care Team Providers Care Blow Pit Operator Name Role Phone Tarah Brock MD Primary Care Provider + Surgical History Surgery Date Site/Laterality Comments OTHER SURGICAL HISTORY PROCEDURE: ARTHROSCOPY PROCEDURE NEC; COMMENT: knee debreedment WISDOM TOOTH EXTRACTION PROCEDURE: HISTORICAL WISDOM TEETH EXTRACTION KNEE ARTHROSCOPY PROCEDURE: [place] ARTHROSCOPY AID [place] SPINE&/FX KNEE W/O FIXJ [...] - 2023-2 5 season) 2024 Influenza Vaccine (Season Ended) 2025 HIB Vaccines Aged Out No longer eligi [...] age to complete this topic Meningococcal B Vaccine Aged Out No l onger eligible based on patient's age to complete [...] age to complete this topic Care Teams Blow Pit Operator Relationship Specialty Start Date End Date Tarah Brock MD [address] [place] [address] PCP - General Internal Medicine 12/31/18
== END ==
LOC: HO.SL 19:30
PROVIDERS: PCP Physician Assistant; Visit Provider Physician Assistant Medical
DX: G47.33 Obstructive sleep apnea (adult) (pediatric) (principal)
CPT/HCPCS: 95811

== ENCOUNTER 2025-03-06 06:09 | Outpatient (REF) | payer OTHER, SELFPAY ==
--- OUTSIDE RECORDS SUMMARY | 2025-03-06 06:12 | XMS_ITS | Clinical Summary ---
Author Organization [facility] Address [address] [place] [address] Care Team Providers Care Audio Production Instructor Name Role Phone Tarah Brock MD Primary Care Provider + Surgical History Surgery Date Site/Laterality Comments OTHER SURGICAL HISTORY PROCEDURE: ARTHROSCOPY PROCEDURE NEC; COMMENT: knee debreedment WISDOM TOOTH EXTRACTION PROCEDURE: HISTORICAL WISDOM TEETH EXTRACTION KNEE ARTHROSCOPY PROCEDURE: [place] ARTHROSCOPY AID [place] SPINE&/FX KNEE W/O FIXJ [...] age to complete this topic Care Teams Audio Production Instructor Relationship Specialty Start Date End Date Tarah Brock MD [address] [place] [address] PCP - General Internal Medicine 12/31/18
[2025-03-06 06:52] LABS: MANUAL DIFF FLAG NO
[2025-03-06 07:19] LABS: Basophils Absolute Auto 0.1 X10*3/uL (0.0-0.2); Basophils Percent Auto 0.8 % (0-2); Eosinophils Absolute Auto 0.1 X10*3/uL (0.0-0.4); Eosinophils Percent Auto 0.8 % (0-4); Hematocrit 44.5 % (37.0-47.0); Hemoglobin 14.9 g/dl (12.0-16.0); Imm Gran Abs Auto 0.03 X10*3/uL (0.00-0.03); Imm Gran Pct Auto 0.4 % (0.0-0.4); Lymphocytes Absolute Auto 2.5 X10*3/uL (1.2-4.9); Lymphocytes Percent Auto 29.9 % (20-40); Mean Corpuscular HGB Conc 33.5 g/dl (31.0-35.0); Mean Corpuscular Hemoglobin 31.3 pg (27.0-33.0); Mean Corpuscular Volume 93.5 fL (80.0-98.0); Mean Platelet Volume 10.1 fL (9.4-12.3); Monocytes Absolute Auto 0.5 X10*3/uL (0.1-1.2); Monocytes Percent Auto 5.8 % (2-11); Neutrophils Absolute Auto 5.2 x10*3/uL (2.0-8.3); Neutrophils Percent Auto 62.3 % (45-73); Platelet Count 229 X10*3/uL (160-400); Red Blood Count 4.76 X10*6/uL (4.20-5.50); Red Cell Distribution Width 11.7 % (11.0-16.0); White Blood Count 8.3 X10*3/uL (4.8-10.8)
[2025-03-06 07:48] LABS: Alanine Aminotransferase 27 U/L (0-31); Albumin Level 4.4 g/dL (3.5-5.0); Anion Gap 11 (12-20); Aspartate Amino Transferase 23 U/L (5-31); Bilirubin Total 0.5 mg/dL (0.0-1.0); Blood Urea Nitrogen 24 mg/dL (9-16); Calcium 9.6 mg/dL (8.4-10.2); Carbon Dioxide 29 mmol/L (22-29); Chloride 104 mmol/L (96-108); Estimated Glomerular Filt Rate > 60; Glucose Fasting 88 mg/dL (60-99); Magnesium 2.4 mg/dL (1.6-2.6); Potassium 4.4 mmol/L (3.3-5.1); Sodium 140 mmol/L (135-145); Total Protein 7.4 g/dL (6.5-8.0)
[2025-03-06 08:00] LABS: Alkaline Phosphatase 62 U/L (39-117)
[2025-03-06 08:13] LABS: TSH reflex Free T4 0.81 uIU/mL (0.32-4.0)
[2025-03-06 08:33] LABS: Vitamin B12 703 pg/mL (200-900)
== END 2025-03-06 06:10 | disposition home or self-care (01) ==
LOC: HO.LAB 06:09
PROVIDERS: PCP Physician Assistant; Visit Provider Physician Assistant
DX: F41.1 Generalized anxiety disorder (principal); F41.0 Panic disorder [episodic paroxysmal anxiety]; I10 Essential (primary) hypertension; E78.00 Pure hypercholesterolemia, unspecified
CPT/HCPCS: 36415; 80053; 82607; 82746; 83735; 84443; 85025

== ENCOUNTER 2025-03-11 09:41 | Outpatient (AMB) | payer OTHER, SELFPAY ==
--- NOTE | 2025-03-11 09:55 | A.OFFPC_ITS ---
Vital Signs 03/11/25 09:56 Height 5 ft 4 in Weight 145 lb BMI 24.9 BP 108/82 Blood Pressure Location Rt brachial Position Sitting Respiration 12 Pulse 95 Pulse Source Pulse Oximeter Pulse Oximetry (%) 98 Oxygen Delivery Method Room Air Intake Visit Reasons: 6 month fu insomnia Intake Note: Six month follow up Road Test Examiner Required: No Allergies azithromycin Allergy (Unknown, Verified 03/11/25 09:55) Unknown clindamycin Allergy (Unknown, Verified 03/11/25 09:55) Unknown Tobacco use date assessed: 03/11/25 Dental Screening Dental Screen Date: 05/07/24 HPI 6 month fu insomnia HPI Details The patient is a 45-year-old female with a hx of ocd, anxiety, severe bernie, htn presenting today for a follow up. Psych: She does present with anxiety and obsessive-compulsive symptoms. She reports a history of anxiety and obsessive-compulsive disorder, characterized by cheek biting and finger peeling, which she has been unable to control. The patient has noted an exacerbation of these symptoms. The patient is currently maintained on Celexa 40 mg for her mental health symptoms and amitriptyline 25 mg for its sedative effects. She is not currently utilizing lorazepam, which was prescribed as needed for acute anxiety episodes. -Recent stressors: Her was in [place] for a month with a possible nerve condition ? GBS. Her friend of an PA last month. She states she actually had to assist in CPR. She does not want to see a therapist. She states she is managing well at home. CV: Her blood pressure today in the office is 108/82. She is currently on Norvasc 10 mg daily. The patient has been using a CPAP machine and reports improved sleep quality as a result. General: following with breast specialist soon 03/24/25 due to fam hx of breast ca. She had neg genetic testing. Mammo: 08/28/24 at [facility] Ax Survey Worker: Dr. Bernabe [facility] Medical History (Updated 12/31/24 @ 10:18 by Nano Peters PA-C) Obstructive sleep apnea hypopnea, severe Herpes zoster Depressive disorder Fibromyalgia Migraine Insomnia Hypercholesteremia Hypertension GERD (gastroesophageal reflux disease) Gall stones Anxiety and depression Surgical History Hx laparoscopic cholecystectomy Hx of knee surgery Family History Mother Cardiac arrest Hypercholesteremia Brother Hypertension Sister Diabetes Social History Housing: House Patient Tobacco Use Status: Never used Tobacco e-Cigarette/Vaping Use: Never Used Second Hand Smoke Exposure: No service: No Current occupational status: employed and unemployed 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 Cognitive needs: No Hearing needs: No Vision needs: Yes (contact, glasses) Questionnaire Thrive Questionnaire Date Thrive assessed: 12/29/24 I am a: Patient What is your living situation today?: I have a steady place to live Within the past 12 months, did the food you bought not last and you didn't have the money to get more?: Never true Within the past 12 months, did you worry whether your food would run out before you got money to buy more?: Never true Do you have trouble paying for medicines?: No Do you have trouble getting transportation to medical appointments?: No Do you have trouble paying your heating and electricity bill?: No Do you have trouble taking care of your child, family member or friend?: No Do you have trouble with day-to-day activities such as bathing, preparing meals, shopping, managing finances, etc.?: No Are you currently unemployed and looking for a job?: No Are you interested in more education?: No Please select the resources that you would like help with: None Currently or been in a relationship where the following occur: No concerns reported THRIVE Score: 0 AUDIT C Alcohol Use Questionnaire (AUDIT-C) 1. How often do you have a drink containing alcohol?: 2-3 times a week 2. How many drinks containing alcohol do you have on a typical day when you are drinking?: 1 or 2 3. How often do you have six or more drinks on one occasion?: Never Total Score: 3 BENNY-7 AMB Questionnaire BENNY-7 Date BENNY - 7 assessed: 12/31/24 Source: Developed by Drs. Wesley Lee, Fanny Roy, Sukhjinder Delarosa and colleagues, with an educational casey from [employer]. Physical exam (Primary Care) Vital Signs: Last Vital Signs Pulse 95 03/11/25 09:56 Resp 12 03/11/25 09:56 BP 108/82 03/11/25 09:56 Pulse Ox 98 03/11/25 09:56 Oxygen Delivery Method Room Air 03/11/25 09:56 BMI result Body Mass Index 24.9 Tobacco/Smoking Status: Tobacco use Status Tobacco use date assessed 03/11/25 03/11/25 09:58 Patient Tobacco Use Status Never used Tobacco 03/11/25 09:58 e-Cigarette/Vaping Use Never Used 03/11/25 09:58 Thrive Assessment: Date of Thrive Assessment Date Thrive assessed 12/29/24 03/11/25 09:58 Currently or been in a relationship where the following occur: No concerns reported Const Orientation/consciousness: patient oriented x3 HENMT Ears: hearing grossly normal bilaterally Neck Thyroid: Thyroid normal Lymphatic: no lymphadenopathy noted Resp Auscultation: clear to auscultation bilaterally Cardio Rate: regular rate Rhythm: regular rhythm Heart sounds: S1 normal heart sound present and S2 normal heart sound present GI Inspection: Yes normal to inspection Palpation (GI): Soft to palpation and Other GI palpation findings present (nontender, no cva tenderness) Auscultation: normoactive bowel sounds Rectal Exam - Female: deferred Skin General skin exam: no rashes or lesions noted Neuro General: patient oriented x3, gait normal and no focal motor deficits Coding Level of Care Code Est Pt Level 4 (89937) Complex EM visit Add On G2211 Diagnoses Obstructive sleep apnea hypopnea, severe G47.33 Generalized anxiety disorder with panic attacks F41.1; F41.0 Primary hypertension I10 Hypertension type: primary hypertension Hypercholesteremia E78.00 Assessment & Plan Assessment & Plan (1) Obstructive sleep apnea hypopnea, severe: Comment: AHI 46 O2 pat was 81% PSG- 08/2024 Code(s): G47.33 - Obstructive sleep apnea (adult) (pediatric) Category: Medical Plan: Continue following with sleep Medicine (2) Generalized anxiety disorder with panic attacks: Code(s): F41.1 - Generalized anxiety disorder; F41.0 - Panic disorder [episodic paroxysmal anxiety] Category: Medical Plan: Stable. Does not wish to make a medication adjustment at this time or to follow with a therapist. She will let me know if anything changes. (3) Hypertension: Code(s): I10 - Essential (primary) hypertension Category: Medical Qualifiers: Hypertension type: primary hypertension Qualified Code(s): I10 - Essential (primary) hypertension Plan: WNL. Continue with the amlodipine. Last visit we discontinue the HCTZ. (4) Hypercholesteremia: Code(s): E78.00 - Pure hypercholesterolemia, unspecified Category: Medical Plan: We will monitor.
[2025-03-11 09:56] VITALS: BP 108/82; PULSE 95; RESP 12; O2SAT 98; BMI 24.9
--- OUTSIDE RECORDS SUMMARY | 2025-03-11 10:53 | XMS_ITS | Clinical Summary ---
Author Organization [facility] Address [address] [place] [address] Care Team Providers Care Wind Tunnel Mechanic Name Role Phone Tarah Brock MD Primary Care Provider + Surgical History Surgery Date Site/Laterality Comments OTHER SURGICAL HISTORY PROCEDURE: ARTHROSCOPY PROCEDURE NEC; COMMENT: knee debreedment WISDOM TOOTH EXTRACTION PROCEDURE: HISTORICAL WISDOM TEETH EXTRACTION KNEE ARTHROSCOPY PROCEDURE: [place] ARTHROSCOPY AID [place] SPINE&/FX KNEE W/O FIXJ [...] age to complete this topic Care Teams Wind Tunnel Mechanic Relationship Specialty Start Date End Date Tarah Brock MD [address] [place] [address] PCP - General Internal Medicine 12/31/18
== END 2025-03-11 10:25 | disposition home or self-care (01) ==
LOC: HO.HMCFM 09:42
PROVIDERS: PCP Physician Assistant; Visit Provider Physician Assistant
DX: G47.33 Obstructive sleep apnea (adult) (pediatric) (principal); F41.1 Generalized anxiety disorder; F41.0 Panic disorder [episodic paroxysmal anxiety]; I10 Essential (primary) hypertension; E78.00 Pure hypercholesterolemia, unspecified

== ENCOUNTER → 2025-03-11 09:41 | Outpatient (BNVA) | payer OTHER, SELFPAY | PROVIDERS: PCP Physician Assistant; Visit Provider Physician Assistant | DX: G47.33 Obstructive sleep apnea (adult) (pediatric) (principal); F41.1 Generalized anxiety disorder; F41.0 Panic disorder [episodic paroxysmal anxiety]; I10 Essential (primary) hypertension; E78.00 Pure hypercholesterolemia, unspecified | CPT/HCPCS: 99212 ==

== ENCOUNTER 2025-03-20 13:55 | Outpatient (AMB) | payer OTHER, SELFPAY ==
--- NOTE | 2025-03-20 14:02 | A.OFFVIS_ITS ---
Vital Signs 03/20/25 14:05 Height 5 ft 4 in Weight 143 lb 2 oz BMI 24.6 BP 106/72 Blood Pressure Location Lt brachial Position Sitting Pulse 82 Pulse Source Pulse Oximeter Pulse Oximetry (%) 99 Oxygen Delivery Method Room Air Intake Visit Reasons: f/u after sleep study. Intake Note: Patient presents follow up DANELLE. Titration done 03/05(report not in yet) Allergies azithromycin Allergy (Unknown, Verified 03/20/25 14:07) Unknown clindamycin Allergy (Unknown, Verified 03/20/25 14:07) Unknown HPI Comments Details: 45 year old female with h/o migraines and anxiety is here for follow up of her PSG with titration results. HST AHI 45.8 and PLM 32 with 6 arousals, lowest oxygenation 81%. Titration study is done pending results to determine the ideal pressures for treatment, as her AHI is still 4.73 on APAP [id number]. Pt states since starting the CPAP machine she can definitely tell the difference in her energy levels, feels so much better, and having to take less naps daily.. Periodic Limb movements index 32 and arousal index 6/hour, with nocturnal hypoxemia and O2 dessaturation 0f 81% for 18 min. 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 She says her blood pressure has improved since using the CPAP, she no longer feels like she is gasping for air, and recently started using a chin strap because her jaw tends to drop open at night and her mouth dries out. She is now on 1 BP med vs 3 in the past. She denies RLS, symptoms of pins, needles, spasms, or cramps and her labs were reviewed today with her. Migraines: She reports headaches, which are managed with Rizatriptan and Amitryptiline. Genetic testing for the BRCA gene was negative, followed by her specialist OBGYN, she has +fh 3-generational breast cancer. DANELLE compliance report viewed on [employer] ortiz Dec 2024-February 2025 Total usage is 9 hours and 22min with >4 hours of 97% Pressures [id number] and Leaks variable AHI is 4.73. [facility] Medical History Obstructive sleep apnea hypopnea, severe Herpes zoster Depressive disorder Fibromyalgia Migraine Insomnia Hypercholesteremia Hypertension GERD (gastroesophageal reflux disease) Gall stones Anxiety and depression Surgical History Hx laparoscopic cholecystectomy Hx of knee surgery Family History Mother Cardiac arrest Hypercholesteremia Brother Hypertension Sister Diabetes Social History Housing: House Patient Tobacco Use Status: Never used Tobacco e-Cigarette/Vaping Use: Never Used Second Hand Smoke Exposure: No service: No Current occupational status: employed and unemployed 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 Cognitive needs: No Hearing needs: No Vision needs: Yes (contact, glasses) Physical Exam Vital Signs: Last Vital Signs Pulse 82 03/20/25 14:05 BP 106/72 03/20/25 14:05 Pulse Ox 99 03/20/25 14:05 Oxygen Delivery Method Room Air 03/20/25 14:05 BMI result Body Mass Index 24.6 Const General: cooperative, comfortable and no acute distress Orientation/consciousness: patient oriented x3 HEENT Mouth: tongue normal Eyes General: appearance normal, both eyes and all related structures Pupils: Equal, round and reactive pupils present, Pupils normal by confrontation and Pupil accommodation reflex normal Neck Neck: Yes full ROM and Yes supple Resp Effort & Inspection: normal respiratory effort and able to speak in complete sentences Neuro General: patient oriented x3, moves all extremities, Normal light touch and pain sensation and CN's II-XI intact bilaterally Cranial nerves: Yes Facial sensation intact/muscles of mastication intact, Yes Equal, round and reactive pupils present, Yes Nystagmus not present, Yes Normal facial strength present, Yes Midline tongue present, Yes Ability to bilaterally rotate head present and Yes Ability to bilaterally elevate shoulders present Motor exam (neuro): 5/5 motor strength present throughout Deep tendon reflexes (DTR's): Right triceps reflex intensity grade: 2+, Left triceps reflex intensity grade: 2+, Rt Biceps (C5, C6): 2+, Left biceps reflex intensity grade: 2+, Right brachioradialis reflex intensity grade: 2+, Left brachioradialis reflex intensity grade: 2+, Right patellar reflex intensity grade: 2+, Left patellar reflex intensity grade: 2+, Right ankle reflex intensity grade: 2+ and Left ankle reflex intensity grade: 2+ Coordination: [id number] test normal Psych Appearance: grossly normal Speech and movement: Normal speech and movement present Thought process: Normal thought process present Thought content: Normal thought content present Results Reviewed Results Reviewed: DANELLE compliance report viewed on [employer] Dec 2024-February 2025 Total usage is 9 hours and 22min with >4 hours of 97% Pressures [id number] and Leaks variable AHI is 4.73. Titraiton results are pending: Assessment & Plan Assessment & Plan (1) Obstructive sleep apnea hypopnea, severe: Comment: AHI 46 O2 pat was 81% PSG- 08/2024 Code(s): G47.33 - Obstructive sleep apnea (adult) (pediatric) Category: Medical Plan DANELLE on CPAP awaiting titration study to determine best therapy for patient. Patient Education provided today on compliance and reviewed on [employer] today, we discussed the various components of the report. Labs are normal. PLMD? RLS? she denies symptoms of RLS, however PSG c/w multiple arousals. F/u in 3 months for compliance. Patient Instructions: Patient Education: Use CPAP therapy as directed accordingly for a minimum of 4-6 hours per night. Each sleep cycle is 90 min. N1, N2, N3 and REM, thus cycling through these 4 p hases reaching REM allows the Hypothalamus signalling to the Pituitary gland to release GNRH, GHRH, TSH, CRH etc. for growth tissue repair, mood and immunity. If you experience any difficulties with your machine reach out to your cpap provider, and or [facility] for replacements, adjustments of masks, or pressure settings. Download the [employer] ortiz to monitor your own sleep cycle nightly. Write down your questions and lets discuss them. Wash the mask daily,replace hoses, change filters, fill your reservoir with distilled water as needed. Coding Level of Care Code Est Pt Level 4 (57067) Diagnoses Obstructive sleep apnea hypopnea, severe G47.33 Time Spent (min) 30 Comment Patient Education
[2025-03-20 14:05] VITALS: BP 106/72; PULSE 82; O2SAT 99; BMI 24.6
--- OUTSIDE RECORDS SUMMARY | 2025-03-20 14:12 | XMS_ITS | Clinical Summary ---
Author Organization [facility] Address [address] [place] [address] Care Team Providers Care Employee Relations Specialist Name Role Phone Tarah Brock MD Primary Care Provider + Surgical History Surgery Date Site/Laterality Comments OTHER SURGICAL HISTORY PROCEDURE: ARTHROSCOPY PROCEDURE NEC; COMMENT: knee debreedment WISDOM TOOTH EXTRACTION PROCEDURE: HISTORICAL WISDOM TEETH EXTRACTION KNEE ARTHROSCOPY PROCEDURE: [place] ARTHROSCOPY AID [place] SPINE&/FX KNEE W/O FIXJ [...] age to complete this topic Care Teams Employee Relations Specialist Relationship Specialty Start Date End Date Tarah Brock MD [address] [place] [address] PCP - General Internal Medicine 12/31/18
== END 2025-03-20 14:46 | disposition home or self-care (01) ==
LOC: HO.HSMS 13:55
PROVIDERS: PCP Physician Assistant; Visit Provider Physician Assistant Medical
DX: G47.33 Obstructive sleep apnea (adult) (pediatric) (principal)
CPT/HCPCS: 99214

== ENCOUNTER → 2025-03-20 13:55 | Outpatient (BNVA) | payer OTHER, SELFPAY | PROVIDERS: PCP Physician Assistant; Visit Provider Physician Assistant Medical | DX: G47.33 Obstructive sleep apnea (adult) (pediatric) (principal) | CPT/HCPCS: 99212 ==

== ENCOUNTER 2025-06-22 14:02 | Outpatient (AMB) | payer OTHER, SELFPAY ==
--- NOTE | 2025-06-22 14:07 | A.OFFVIS_ITS ---
Vital Signs 06/22/25 14:10 Height 5 ft 4 in Weight 148 lb 2 oz BMI 25.4 BP 120/82 Blood Pressure Location Lt brachial Position Sitting Pulse 109 H Pulse Source Pulse Oximeter Pulse Oximetry (%) 99 Oxygen Delivery Method Room Air Intake Visit Reasons: 3m follow up Intake Note: Patient presents follow up DANELLE. Compliance in chart(90/90 days, >=4hrs- 96%, Average usage-8hrs 49 min, Pressure-9cm, Med leaks-0.0, AHI-3.5). Accompanied by: Self / Same As Patient Allergies azithromycin Allergy (Unknown, Verified 06/22/25 14:12) Unknown clindamycin Allergy (Unknown, Verified 06/22/25 14:12) Unknown HPI Comments Details: 45 year old female with h/o migraines and anxiety is here for follow up of DANELLE. DANELLE Compliance Report 03/19/2025-06/22/2025 viewed on her [employer] ortiz. Total usage is 9 hours and 34min and >4hours is 88/90 days 95% Pressures [id number] and Leaks variable AHI is 3.34 Pt states since starting the CPAP machine she can definitely tell the difference in her energy levels, she feels so much better. She is having to take less naps daily. Titration was completed and her AHI has improved. Periodic Limb movements index 32 and arousal index 6/hour, with nocturnal hypoxemia and O2 Nadirs < 81% for 18 min. She has a difficulty getting into N3 and REM sleep as most of her sleep was in N2, ligher stages. She says her blood pressure has improved since using the CPAP, she no longer feels like she is gasping for air, and recently started using a chin strap because her jaw tends to drop open at night and her mouth dries. She is now on 1 BP med vs 3 in the past. She denies RLS, symptoms of pins, needles, spasms, or cramps and her labs were reviewed today with her. 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 FH +Sister had a stroke at 30, passed at 46 yo. Migraines are managed with Rizatriptan for eposiodic events and Amitryptiline for chronic migraines. She washes her mask, rinses hoses, changes filters and fills the rervoir with water [facility] Medical History Obstructive sleep apnea hypopnea, severe Herpes zoster Depressive disorder Fibromyalgia Migraine Insomnia Hypercholesteremia Hypertension GERD (gastroesophageal reflux disease) Gall stones Anxiety and depression Surgical History Hx laparoscopic cholecystectomy Hx of knee surgery Family History Mother Cardiac arrest Hypercholesteremia Brother Hypertension Sister Diabetes Social History Housing: House Patient Tobacco Use Status: Never used Tobacco e-Cigarette/Vaping Use: Never Used Second Hand Smoke Exposure: No service: No Current occupational status: employed and unemployed 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 Cognitive needs: No Hearing needs: No Vision needs: Yes (contact, glasses) Physical Exam Vital Signs: Last Vital Signs Pulse 109 H 06/22/25 14:10 BP 120/82 06/22/25 14:10 Pulse Ox 99 06/22/25 14:10 Oxygen Delivery Method Room Air 06/22/25 14:10 BMI result Body Mass Index 25.4 Const General: cooperative, comfortable and no acute distress Orientation/consciousness: patient oriented x3 HEENT Face and sinus: Yes face symmetric Mouth: tongue normal Eyes General: appearance normal, both eyes and all related structures Pupils: Equal, round and reactive pupils present, Pupils normal by confrontation and Pupil accommodation reflex normal Neck Neck: Yes full ROM and Yes supple Resp Effort & Inspection: normal respiratory effort and able to speak in complete sentences Neuro General: patient oriented x3, moves all extremities, Normal light touch and pain sensation and CN's II-XI intact bilaterally Cranial nerves: Yes Facial sensation intact/muscles of mastication intact, Yes Equal, round and reactive pupils present, Yes Nystagmus not present, Yes Normal facial strength present, Yes Midline tongue present, Yes Ability to bilaterally rotate head present and Yes Ability to bilaterally elevate shoulders present Motor exam (neuro): 5/5 motor strength present throughout Psych Appearance: grossly normal Speech and movement: Normal speech and movement present Thought process: Normal thought process present Thought content: Normal thought content present Assessment & Plan Assessment & Plan (1) Obstructive sleep apnea hypopnea, severe: Comment: AHI 46 O2 pat was 81% PSG- 08/2024 Code(s): G47.33 - Obstructive sleep apnea (adult) (pediatric) Category: Medical Plan DANELLE on CPAP compliance reviewed with patient, continue cpap use, as patient experiencing good results. Fatigue, ruled out labs for nutritional deficiencies. PLMD? RLS? she denies symptoms of RLS, however PSG c/w multiple arousals. F/u in 6months, unless if need to be seen sooner. Patient Instructions: Sleep Hygiene provided: set a scheduled bedtime and wake time to help regulate the circadian rhythm and balance the release of pituitary hormones. Sleep in a dark room, temperatures below 68 degrees, and no devices n bed. Limit caffeinated products 6 hours prior to bed, and limit fluids 2-4 hours prior to bed. Gentle night yoga, diffusing essential oils, and playing soft music can be relaxing. Coding Level of Care Code Est Pt Level 4 (68367) Diagnoses Obstructive sleep apnea hypopnea, severe G47.33 Time Spent (min) 30 Comment Improving
[2025-06-22 14:10] VITALS: BP 120/82; PULSE 109; O2SAT 99; BMI 25.4
--- OUTSIDE RECORDS SUMMARY | 2025-06-22 14:10 | XMS_ITS | Clinical Summary ---
Author Organization [facility] Address [address] [place] [address] Care Team Providers Care Card Table Attendant Name Role Phone Tarah Brock MD Primary Care Provider + Surgical History Surgery Date Site/Laterality Comments OTHER SURGICAL HISTORY PROCEDURE: ARTHROSCOPY PROCEDURE NEC; COMMENT: knee debreedment WISDOM TOOTH EXTRACTION PROCEDURE: HISTORICAL WISDOM TEETH EXTRACTION KNEE ARTHROSCOPY PROCEDURE: [place] ARTHROSCOPY AID [place] SPINE&/FX KNEE W/O FIXJ [...] Cervical Cancer Screening: P ap Smear 2002 HIV Screening 10/21/2022 Hepatitis C Screening 10/21/2022 Social Influencers of Health Screening 10/21/2022 COVID-19 Vaccine (1 - 2023-2 5 season) 2024 Depression Screening 11/19/2024 Influenza Vaccine (#1) 2025 HIB Vaccines Aged Out No longer [...] 5 Years) and At-Risk Patients (6 to 49 Years) Aged Out No longer eligible b ased on patient's age to complete this topic RSV Immunization Patients Un delmy 20 months Aged Out No longer eligible b ased on patient's age to complete this topic Varicella Vaccines Aged Out No longer eligible based on patient's age to complete this topic Care Teams Card Table Attendant Relationship Specialty Start Date End Date Tarah Brock MD [address] [place] [address] PCP - General Internal Medicine 12/31/18
== END 2025-06-22 14:38 | disposition home or self-care (01) ==
LOC: HO.HSMS 14:03
PROVIDERS: PCP Physician Assistant; Visit Provider Physician Assistant Medical
DX: G47.33 Obstructive sleep apnea (adult) (pediatric) (principal)
CPT/HCPCS: 99214

== ENCOUNTER → 2025-06-22 14:02 | Outpatient (BNVA) | payer OTHER, SELFPAY | PROVIDERS: PCP Physician Assistant; Visit Provider Physician Assistant Medical | DX: G47.33 Obstructive sleep apnea (adult) (pediatric) (principal); Z99.89 Dependence on other enabling machines and devices | CPT/HCPCS: 99212 ==